=== PATIENT | male | born 1965 ===

== ENCOUNTER 2017-02-14 13:26 | Emergency (ER) | payer OTHER ==
--- NOTE | 2017-02-14 13:47 | C.PDOC ---
History Of Present Illness 51 y/o M c PMHx spinal stenosis p/w chronic back pain for years that is exacerbated today. He denies injury, fever, recent procedure, weakness, numbness , urinary or bowel changes. He states he has never followed up with pain management or back specialist. Time Seen by Provider: 02/14/17 13:36 Chief Complaint (Nursing): Back Pain Past Medical History Vital Signs: Last Vital Signs Temp 98.5 F 02/14/17 13:39 Pulse 81 02/14/17 13:39 Resp 20 02/14/17 13:39 BP 131/86 02/14/17 13:39 Pulse Ox 95 02/14/17 14:25 Family History: States: No Known Family Hx Review Of Systems Except As Marked, All Systems Reviewed And Found Negative. Constitutional: Negative for: Fever Cardiovascular: Negative for: Chest Pain Physical Exam - Physical Exam Additional Physical Exam Comments: Constitutional: No acute distress. Head: Normocephalic. Atraumatic. Eyes: PERRL. ENT: Moist mucous membranes. Neck: Supple. Cardiovascular:Regular rate. Radial pulses 2+ bilaterally. Chest: No tenderness. Respiratory: Clear to auscultation bilaterally. GI: Soft. Nontender. Nondistended. Musculoskeletal: No tenderness or swelling of extremities. Skin: No rashes. Neurologic: Alert, no focal deficit. Motor intact x 4. Sensation to light touch intact in bilateral legs. ED Course And Treatment O2 Sat by Pulse Oximetry: 95 Medical Decision Making Medical Decision Making: Patient had MRI report showing evidence of his spinal stenosis. No concern currently for spinal abscess or cord compression. Will treat with Percocet, short course of pain exacerbation. I instructed the patient to f/u with PMD for referral to pain management or internal communications specialist. I informed him of the risk of addiction. Registry shows no narcotic prescriptions in the last year and prescriptions for Xanax only on a monthly basis from only 1 physician. Disposition - Disposition Disposition: HOME/ ROUTINE Disposition Time: 14:24 Condition: STABLE Prescriptions: oxyCODONE/Acetaminophen [Percocet 5/325 mg Tab] 1 tab PO Q6 #10 tab Instructions: Chronic Back Pain (ED) - Clinical Impression Clinical Impression: Back pain
[2017-02-14 13:54] VITALS: BP 131/86; TEMP 98.5; BMI 31.1
[2017-02-14 15:01] VITALS: PULSE 72; RESP 18; O2SAT 98
== END 2017-02-14 15:01 | disposition home or self-care (01) ==
LOC: C.ER 13:26
DX: M54.9 Dorsalgia, unspecified (principal)

== ENCOUNTER 2017-02-20 12:55 | Emergency (ER) | payer OTHER ==
[2017-02-20 12:55] VITALS: BMI 31.1
[2017-02-20 13:13] VITALS: RESP 17
--- NOTE | 2017-02-20 13:26 | C.PDOC ---
Time Seen by Provider: 02/20/17 13:18 Chief Complaint (Nursing): Back Pain Past Medical History Vital Signs: Last Vital Signs Temp 98.9 F 02/20/17 13:12 Pulse 89 02/20/17 13:12 Resp 17 02/20/17 13:12 BP 157/83 H 02/20/17 13:12 Pulse Ox 100 02/20/17 13:12 - Medical History PMH: Hypercholesterolemia Denies: Chronic Kidney Disease Surgical History: Appendectomy - Social History Hx Alcohol Use: No Hx Substance Use: No - Immunization History Hx Tetanus Toxoid Vaccination: No Hx Influenza Vaccination: No Hx Pneumococcal Vaccination: No ED Course And Treatment O2 Sat by Pulse Oximetry: 100 Medical Decision Making Medical Decision Makin02/16/2017 1 01/22/2017 ALPRAZOLAM 2 MG TABLET 90.0 30 MA MINDA [id number] COMMU (1471 ) 0 Comm Ins [place] 02/14/2017 2 02/14/2017 OXYCODONE-ACETAMINOPHEN 5-325 10.0 3 JA IMM [id number] HERBE (1188) 0 25.0 [place] 01/17/2017 1 12/29/2016 ALPRAZOLAM 2 MG TABLET 90.0 30 MA MINDA [id number] COMMU (1471 ) 0 Private Pay [place] 12/20/2016 1 11/27/2016 ALPRAZOLAM 2 MG TABLET 90.0 30 MA MINDA [id number] COMMU (1471 ) 0 [place] 11/20/2016 1 10/23/2016 ALPRAZOLAM 2 MG TABLET 90.0 30 MA MINDA [id number] COMMU (1471 ) 0 [place] 10/20/2016 1 09/25/2016 ALPRAZOLAM 2 MG TABLET 90.0 30 MA MINDA [id number] COMMU (1471 ) 0 [place] 09/19/2016 1 08/28/2016 ALPRAZOLAM 2 MG TABLET 90 30 Ma Minda [id number] COMMU (1471) 0 [place] 08/18/2016 1 07/24/2016 ALPRAZOLAM 2 MG TABLET 90 30 Ma Minda [id number] COMMU (1471) 0 [place] 07/18/2016 1 06/16/2016 ALPRAZOLAM 2 MG TABLET 90 30 Ma Minda [id number] COMMU (1471) 0 [place] 06/18/2016 4 05/29/2016 ALPRAZOLAM 2 MG TABLET 90 30 Ma Minda [id number] COMMU (1471) 0 [place] 05/14/2016 4 04/22/2016 ALPRAZOLAM 1 MG TABLET 90 30 Ma Minda [id number] COMMU (1471) 0 [place] 04/14/2016 4 03/27/2016 ALPRAZOLAM 2 MG TABLET 90 30 Ma Minda [id number] COMMU (1471) 0 [place] 03/14/2016 3 02/28/2016 ALPRAZOLAM 2 MG TABLET 90 30 Ma Minda [id number] COMMU (1471) 0 [facility]
[2017-02-20] MEDS ORDERED: Oxycodone/Acetaminophen 5/325 mg Tab PO STA (13:30)
--- NOTE | 2017-02-20 13:33 | C.PDOC ---
History Of Present Illness 51 y/o male PMHx chronic back pain and sciatica presents to the ED with complains of back pain exacerbation. Pt states only percocet helps the pain. Pt has main management appointment with Dr Castillo on 03/23 but is currently out of medication. Pt was seen in ED 02/14 for the same, given 10 tabs percocet. Pt denies any new symptoms. Time Seen by Provider: 02/20/17 13:18 Chief Complaint (Nursing): Back Pain History Per: Patient History/Exam Limitations: no limitations Current Symptoms Are (Timing): Still Present Quality Of Discomfort: "Pain" Severity: Moderate Previous Symptoms: Back Pain, Chronic Pain Past Medical History Reviewed: Historical Data, Nursing Documentation, Vital Signs Vital Signs: Last Vital Signs Temp 98.4 F 02/20/17 13:53 Pulse 70 02/20/17 13:53 Resp 17 02/20/17 13:53 BP 124/85 02/20/17 13:53 Pulse Ox 100 02/20/17 14:38 - Medical History PMH: Hypercholesterolemia Surgical History: Appendectomy Family History: States: No Known Family Hx - Social History Hx Alcohol Use: No Hx Substance Use: No - Immunization History Hx Tetanus Toxoid Vaccination: No Hx Influenza Vaccination: No Hx Pneumococcal Vaccination: No Review Of Systems Except As Marked, All Systems Reviewed And Found Negative. Constitutional: Negative for: Fever, Chills Respiratory: Negative for: Cough, Shortness of Breath Gastrointestinal: Negative for: Nausea, Vomiting, Abdominal Pain, Diarrhea Musculoskeletal: Positive for: Back Pain Physical Exam - Physical Exam Appears: Non-toxic, No Acute Distress Skin: Warm, Dry, No Rash Head: Normacephalic Oral Mucosa: Moist Cardiovascular: Rhythm Regular Respiratory: Normal Breath Sounds, No Rales, No Rhonchi, No Wheezing Gastrointestinal/Abdominal: Normal Exam, Bowel Sounds, Soft, No Tenderness Back: No CVA Tenderness, No Vertebral Tenderness, Paraspinal Tenderness (B/L paraspinal TTP) Extremity: Normal ROM Extremity: Bilateral: Atraumatic Neurological/Psych: Oriented x3 Gait: Steady ED Course And Treatment O2 Sat by Pulse Oximetry: 100 (RA) Pulse Ox Interpretation: Normal Progress Note: Patient given dose of Percocet in the ED. Explained our pain policy to patient, and that I unable to give out Rx for Percocet. Patient instructed to follow up with his PMD Dr. Wharton for medication while he waits for pain management appointment. He understands he should return to ED if symptoms worsen. Disposition Counseled Patient/Family Regarding: Diagnosis, Need For Followup - Disposition Referrals: Goldy Wharton MD [Staff Provider] - Disposition: HOME/ ROUTINE Disposition Time: 13:50 Condition: STABLE Additional Instructions: FOLLOW UP WITH DR WHARTON FOR PAIN MEDICATION UNTIL YOUR SCHEDULED APPOINTMENT ON MARCH 23 WITH PAIN MANAGEMENT RETURN TO ER IF SYMPTOMS WORSEN Instructions: Chronic Pain (ED) Print Language: TUNISIAN - POA Present On Arrival: None - Clinical Impression Clinical Impression: Chronic pain - Scribe Statement The provider has reviewed the documentation as recorded by the Ankita Winter Provider Attestation: All medical record entries made by the Ankita were at my direction and personally dictated by me. I have reviewed the chart and agree that the record accurately reflects my personal performance of the history, physical exam, medical decision making, and the department course for this patient. I have also personally directed, reviewed, and agree with the discharge instructions and disposition.
[2017-02-20] MEDS ORDERED: Oxycodone/Acetaminophen 5/325 mg Tab ONE (13:34)
[2017-02-20 13:54] VITALS: BP 124/85; PULSE 70; TEMP 98.4
[2017-02-20 14:35] VITALS: O2SAT 100
== END 2017-02-20 14:03 | disposition home or self-care (01) ==
LOC: C.ER 12:55
DX: G89.29 Other chronic pain (principal)

== ENCOUNTER 2017-03-05 11:31 | Emergency (ER) | payer OTHER ==
[2017-03-05 11:32] VITALS: BMI 31.1
[2017-03-05 11:43] VITALS: TEMP 98.9
--- NOTE | 2017-03-05 12:13 | C.PDOC ---
Chief Complaint (Nursing): Pain, Chronic Past Medical History Vital Signs: Last Vital Signs Temp 98.9 F 03/05/17 11:42 Pulse 82 03/05/17 11:42 Resp 20 03/05/17 11:42 BP 131/81 03/05/17 11:42 Pulse Ox 98 03/05/17 11:42 - Medical History PMH: Hypercholesterolemia Denies: Chronic Kidney Disease Surgical History: Appendectomy Family History: States: Unknown Family Hx - Social History Hx Alcohol Use: No Hx Substance Use: No - Immunization History Hx Tetanus Toxoid Vaccination: No Hx Influenza Vaccination: No Hx Pneumococcal Vaccination: No ED Course And Treatment O2 Sat by Pulse Oximetry: 98
--- NOTE | 2017-03-05 13:08 | C.PDOC ---
History Of Present Illness 51 yr old male presents to the ER requesting narcotic pain medication for his chronic pain. Patient states he had a MRI done 1 month ago, which showed a spinal stenosis and has a appointment scheduled for 03/23 with the pain management. Patient states he has been taking ibuprofen at home with no improvement. Patient was given prescription for percocet on 02/14, 3 days worth in the ED. Patient denies fever, chills, nausea, vomiting, abdominal pain, diarrhea, dysuria, weakness or numbness. pt has no worsening pf pain, denies any neurological complaints. Time Seen by Provider: 03/05/17 12:17 Chief Complaint (Nursing): Pain, Chronic History Per: Patient History/Exam Limitations: no limitations Onset/Duration Of Symptoms: Days Current Symptoms Are (Timing): Still Present Past Medical History Reviewed: Historical Data, Nursing Documentation, Vital Signs Vital Signs: Last Vital Signs Temp 98.9 F 03/05/17 11:42 Pulse 71 03/05/17 13:28 Resp 17 03/05/17 13:28 BP 120/71 03/05/17 13:28 Pulse Ox 98 03/05/17 17:23 - Medical History PMH: Hypercholesterolemia Surgical History: Appendectomy Family History: States: No Known Family Hx - Social History Hx Alcohol Use: No Hx Substance Use: No - Immunization History Hx Tetanus Toxoid Vaccination: No Hx Influenza Vaccination: No Hx Pneumococcal Vaccination: No Review Of Systems Except As Marked, All Systems Reviewed And Found Negative. Constitutional: Negative for: Fever, Chills Gastrointestinal: Negative for: Nausea, Vomiting, Abdominal Pain, Diarrhea Genitourinary: Negative for: Dysuria Musculoskeletal: Positive for: Back Pain (Chronic low back pain ) Neurological: Negative for: Weakness, Numbness Physical Exam - Physical Exam Appears: Well, Non-toxic, No Acute Distress Skin: Warm, Dry, No Rash Head: Atraumatic, Normacephalic Oral Mucosa: Moist Neck: Normal, Normal ROM, No Midline Cervical Tenderness, Supple Chest: Symmetrical, No Tenderness Cardiovascular: Rhythm Regular, No Murmur Back: No CVA Tenderness, No Vertebral Tenderness, Other ((+) Right lower distal tenderness) Extremity: Normal ROM, No Swelling Pulses: Left Dorsalis Pedis: Normal, Right Dorsalis Pedis: Normal Neurological/Psych: Oriented x3, Normal Speech, Normal Motor, Normal Sensation ED Course And Treatment O2 Sat by Pulse Oximetry: 98 Medical Decision Making Medical Decision Making: PLAN: * Toradol IM NOTE: Patient with history of central canal stenosis, and neuroforminal stenosis; Had MRI report from 02/03/17 with him. Patient with chronic pain form this, no new symptoms. pt has appt with pain management on 03/23/17. per nj negative developer, pt received rx for 10 percocet on 02/14/17. pt given im toradol here in ED today and will be discharged with a muscle relaxant and lidoderm patches, to f/u with pmd and/or pain mgmt as scheduled. Disposition Counseled Patient/Family Regarding: Diagnosis, Need For Followup - Disposition Disposition: HOME/ ROUTINE Disposition Time: 13:12 Condition: STABLE Additional Instructions: Follow up with Dr Wharton and with your pain management doctor as planned. Take medications as prescribed. Do not drive or operate machinery while taking muscle relaxant. Prescriptions: Lidocaine 5% [Lidoderm] 1 ea TD DAILY PRN #10 patch PRN Reason: Pain, Severe (8-10) Methocarbamol [Robaxin-750] 750 mg PO QID #12 tablet Naproxen [Naprosyn] 500 mg PO BID #20 tablet Forms: General Discharge Instructions - Clinical Impression Clinical Impression: Chronic pain - PA / MANAGER REGIONAL / Resident Statement MD/DO has reviewed & agrees with the documentation as recorded. - Scribe Statement The provider has reviewed the documentation as recorded by the Scribe Arielle Barnes All medical record entries made by the Scribe were at my direction and personally dictated by me. I have reviewed the chart and agree that the record accurately reflects my personal performance of the history, physical exam, medical decision making, and the department course for this patient. I have also personally directed, reviewed, and agree with the discharge instructions and disposition.
[2017-03-05 13:29] VITALS: BP 120/71; PULSE 71; RESP 17
[2017-03-05 14:45] VITALS: O2SAT 98
== END 2017-03-05 13:29 | disposition home or self-care (01) ==
LOC: C.ER 11:31
DX: G89.29 Other chronic pain (principal); M54.5 Low back pain
CPT/HCPCS: 96372; 99283; J1885

== ENCOUNTER 2017-05-06 09:11 | Emergency (ER) | payer OTHER ==
[2017-05-06 09:11] VITALS: BMI 31.1
[2017-05-06 09:16] VITALS: BP 143/89; PULSE 86; RESP 20; TEMP 98.1; O2SAT 96
[2017-05-06] MEDS ORDERED: Oxycodone/Acetaminophen 5/325 mg Tab PO STA (09:28)
--- NOTE | 2017-05-06 09:30 | C.PDOC ---
History Of Present Illness A 51 y/o male comes in c/o chronic lower back pain. pain is non-radiating, 05/18 , dull. Pt has a hx of herniated disks since 1996. He had an MRI done January of this year and was referred to a physical therapist by his PMD. Patient notes that his PMD will not prescribe narcotics until he finished PT. Pt notes only percocet works for him and is only requesting Percocet, stating his last PT session is tomorrow and is to follow up with his PMD after. Patient denies dysuria, hematuria, bowel or bladder incontinence, fever, chills, weakness, or numbness. Time Seen by Provider: 05/06/17 09:14 Chief Complaint (Nursing): Back Pain History Per: Patient History/Exam Limitations: no limitations Onset/Duration Of Symptoms: Persistent Current Symptoms Are (Timing): Still Present Severity: Moderate Pain Scale Rating Of: 7 Previous Symptoms: Chronic Pain Associated Symptoms: denies: New Weakness, New Numbness Recent travel outside of the [place]: No Additional History Per: Patient Past Medical History Reviewed: Historical Data, Nursing Documentation, Vital Signs Vital Signs: Last Vital Signs Temp 98.1 F 05/06/17 09:15 Pulse 86 05/06/17 09:15 Resp 20 05/06/17 09:15 BP 143/89 05/06/17 09:15 Pulse Ox 96 05/06/17 11:41 - Medical History PMH: Hypercholesterolemia Denies: Chronic Kidney Disease Surgical History: Appendectomy Family History: States: Unknown Family Hx - Social History Hx Alcohol Use: No Hx Substance Use: No - Immunization History Hx Tetanus Toxoid Vaccination: No Hx Influenza Vaccination: No Hx Pneumococcal Vaccination: No Review Of Systems Except As Marked, All Systems Reviewed And Found Negative. Constitutional: Negative for: Fever, Chills Gastrointestinal: Negative for: Constipation Genitourinary: Negative for: Dysuria, Incontinence (Bladder and bowel), Hematuria Musculoskeletal: Positive for: Back Pain (Paraspinal lower back pain) Neurological: Negative for: Weakness, Numbness Physical Exam - Physical Exam Appears: Well, Non-toxic, No Acute Distress Skin: Warm, Dry Head: Atraumatic, Normacephalic Respiratory: No Accessory Muscle Use Gastrointestinal/Abdominal: Soft, No Tenderness Back: Normal Inspection (NO bruising), No CVA Tenderness, No Vertebral Tenderness, No Paraspinal Tenderness Extremity: Normal ROM, No Tenderness, No Deformity, No Swelling Neurological/Psych: Oriented x3, Normal Speech, Normal Cognition, Normal Motor, Normal Sensation Gait: Steady ED Course And Treatment O2 Sat by Pulse Oximetry: 96 (RA) Pulse Ox Interpretation: Normal Medical Decision Making Medical Decision Making: Impression: A 51 y/o male comes in c/o chronic paraspinal lower back pain. Plans: -Percocet -Reassess Patient with chronic back pain. His PMD wants him to finish PT prior to any further narcotics. Patient requesting Percocet. Will give him one dose in the ED , no Rx. Patient informed he will not be given narcotic going forwards. Disposition Counseled Patient/Family Regarding: Need For Followup - Disposition Referrals: Goldy Wharton MD [Staff Provider] - Disposition: HOME/ ROUTINE Disposition Time: 09:28 Condition: STABLE Instructions: Back Pain (ED) Forms: General Discharge Instructions - Clinical Impression Clinical Impression: Low back pain, Chronic pain - Scribe Statement The provider has reviewed the documentation as recorded by the Scribmahnaz chang All medical record entries made by the Scribe were at my direction and personally dictated by me. I have reviewed the chart and agree that the record accurately reflects my personal performance of the history, physical exam, medical decision making, and the department course for this patient. I have also personally directed, reviewed, and agree with the discharge instructions and disposition.
[2017-05-06] MEDS ORDERED: Oxycodone/Acetaminophen 5/325 mg Tab ONE ×2 (09:38→09:43)
== END 2017-05-06 10:00 | disposition home or self-care (01) ==
LOC: C.ER 09:11
DX: M54.5 Low back pain (principal); G89.29 Other chronic pain